=== PATIENT | male | born 1995 | race African-American/Black ===

== ENCOUNTER 2022-12-24 19:16 | Emergency (ER) | payer SELFPAY ==
[2022-12-24 19:23] VITALS: BP 121/67; PULSE 67; RESP 18; TEMP 98.2; BMI 19.9
== END 2022-12-24 19:37 | disposition left against medical advice (07) ==
LOC: JER 19:16
DX: K59.00 Constipation, unspecified (principal); R14.0 Abdominal distension (gaseous)
CPT/HCPCS: 99281-25